=== PATIENT | male | born 1960 | race Caucasian/White ===

== ENCOUNTER 2019-09-05 21:41 | Emergency (ER) | payer OTHER ==
--- NOTE | 2019-09-06 00:04 | ED ---
Head Injury - HPI Summary HPI Summary: 59 year old male presents with scalp laceration today. He states that speaker fell on his head. Denies loss consciousness. No headache. No nausea vomiting. No change in vision. No dizziness. States the area on his scalp continues to bleed. His immunizations are up-to-date. He is from out of town. He is not on a blood thinners. - History Of Current Complaint Chief Complaint: EDLacSutureRecheck Stated Complaint: HEAD LAC Time Seen by Provider: 09/05/19 23:50 Pain Intensity: 4 - Allergies/Home Medications Allergies/Adverse Reactions: Allergies Allergy/AdvReac Type Severity Reaction Status Date / Time No Known Allergies Allergy Verified 09/05/19 21:56 PMH/Surg Hx/FS Hx/Imm Hx Endocrine/Hematology History: Denies: Hx Anticoagulant Therapy Respiratory History: Denies: Hx Asthma Infectious Disease History: No Infectious Disease History: Denies: Traveled Outside the in Last 30 Days - [facility] - Family History Known Family History: Positive: Non-Contributory - Social History Alcohol Use: Occasionally Substance Use Type: Reports: None Smoking Status (MU): Never Smoked Tobacco Review of Systems Negative: Fever Negative: Chest Pain Negative: Shortness Of Breath Positive: Other - scalp laceration Negative: Headache All Other Systems Reviewed And Are Negative: Yes Physical Exam Triage Information Reviewed: Yes Vital Signs On Initial Exam: Initial Vitals Temp Pulse Resp BP Pulse Ox 98.3 F 69 16 159/96 97 09/05/19 21:52 09/05/19 21:52 09/05/19 21:52 09/05/19 21:52 09/05/19 21:52 Vital Signs Reviewed: Yes Appearance: Positive: Well-Appearing Skin: Positive: Warm, Dry, Other - 2cm superficial laceration to scalp Head/Face: Positive: Normal Head/Face Inspection Eyes: Positive: Normal, EOMI, SIMON, Conjunctiva Clear ENT: Positive: Pharynx normal, TMs normal Respiratory/Lung Sounds: Positive: Clear to Auscultation, Breath Sounds Present Cardiovascular: Positive: Normal, RRR Musculoskeletal: Positive: Normal Neurological: Positive: Sensory/Motor Intact, Alert, Oriented to Person Place, Time, CN Intact II-III Psychiatric: Positive: Normal Procedures - Sedation Patient Received Moderate/Deep Sedation with Procedure: No - Laceration/Wound Repair 1 Location: Other - scalp laceration Description: Linear Length, Depth and Shape: 2cm superficial Irrigated w/ Saline (ccs): 300 Closure: Troup #__ - 3 Diagnostics - Vital Signs Vital Signs Temp Pulse Resp BP Pulse Ox 09/05/19 21:52 98.3 F 69 16 159/96 97 - Laboratory Lab Statement: Any lab studies that have been ordered have been reviewed, and results considered in the medical decision making process. Head Injury Course/Dx Course Of Treatment: 59 year old male presents with scalp laceration today. He states that speaker fell on his head. Denies loss consciousness. No headache. No nausea vomiting. No change in vision. No dizziness. States the area on his scalp continues to bleed. His immunizations are up-to-date. He is from [place] of town. He is not on a blood thinners. On exam has normal neuro exam. He has a 2cm superficial laceration to scalp. Clean area and place 3 salima. Told to follow up primary. Patient understands and agrees with the plan. - Diagnoses Differential Diagnosis/HQI/PQRI: Concussion Without LOC, Contusion, Laceration Provider Diagnoses: Laceration of head Discharge ED - Sign-Out/Discharge Documenting (check all that apply): Patient Departure - Discharge Plan Condition: Good Disposition: HOME Patient Education Materials: Staple Care (ED) Referrals: No Primary Care Phys,NOPCP [Primary Care Provider] - Additional Instructions: Take Tylenol for pain every 6 hours Do not scrub staple area Return to ED, urgent care or primary in 7-10 days to have salima removed Follow up with primary Return to ED if develop any new or worsening symptoms - Billing Disposition and Condition Condition: GOOD Disposition: Home
[2019-09-06 00:34] VITALS: BP 131/90
== END 2019-09-06 00:33 | disposition home or self-care (01) ==
LOC: ED 21:41
DX: S01.01XA Laceration without foreign body of scalp, initial encounter (principal); W20.8XXA Other cause of strike by thrown, projected or falling object, initial encounter; Y92.9 Unspecified place or not applicable
CPT/HCPCS: 12001; 99282